=== PATIENT | male | born 1960 | race Caucasian/White ===

== ENCOUNTER 2023-08-19 06:31 | Outpatient (CLI) | payer OTHER, SELFPAY ==
--- NOTE | 2023-08-19 07:51 | W.ANESCHARGE ---
Anesthesia Charges Start Date/Time Anesthesia Start Date: 08/19/23 Anesthesia Start Time: 07:20 Stop Date/Time Anesthesia Stop Date: 08/19/23 Anesthesia Stop Time: 07:48
== END 2023-08-19 06:32 | disposition home or self-care (01) ==
LOC: OP CLINIC 06:34
PROVIDERS: PCP Family Medicine; Visit Provider Internal Medicine
DX: Z12.11 Encounter for screening for malignant neoplasm of colon (principal); K63.5 Polyp of colon; Z80.0 Family history of malignant neoplasm of digestive organs
CPT/HCPCS: 00811; 45380; 88305; J2704